=== PATIENT | female | born 1970 | race Caucasian/White ===

== ENCOUNTER → 2024-09-21 14:11 | Outpatient (REF) | payer OTHER, SELFPAY | LOC: WDC 14:11 | PROVIDERS: ATTENDING PHYSICIAN Obstetrics & Gynecology Gynecology; FAMILY PHYSICIAN Internal Medicine | DX: Z12.31 Encounter for screening mammogram for malignant neoplasm of breast (principal) | CPT/HCPCS: 77063; 77067 ==

== ENCOUNTER → 2025-02-04 06:45 | Outpatient (REF) | payer OTHER, SELFPAY | LOC: RAD 06:45 | PROVIDERS: ATTENDING PHYSICIAN Internal Medicine Endocrinology, Diabetes & Metabolism; FAMILY PHYSICIAN Internal Medicine | DX: E05.90 Thyrotoxicosis, unspecified without thyrotoxic crisis or storm (principal) | CPT/HCPCS: 78014; A9516 ==

== ENCOUNTER → 2025-08-05 08:08 | Outpatient (REF) | payer OTHER, SELFPAY | LOC: RAD 08:08 | PROVIDERS: ATTENDING PHYSICIAN Internal Medicine | DX: M85.89 Other specified disorders of bone density and structure, multiple sites (principal) | CPT/HCPCS: 77080 ==